=== PATIENT | male | born 1970 | race Caucasian/White ===

== ENCOUNTER 2023-12-14 18:56 | Emergency (ER) | payer BC, SELFPAY ==
[2023-12-14] VITALS (15 sets, daily range): BP systolic 75–145; BP diastolic 45–84; PULSE 76–96; RESP 16–17; TEMP 36.6; O2SAT 95–99
--- NOTE | 2023-12-14 19:32 | ED.NAVMDI ---
HPI - Nausea/Vomiting/Diarrhea General Chief complaint: Nausea/Vomiting/Diarrhea Stated complaint: diarrhea, sweating, feeling unwell Time Seen by Provider: 12/14/23 19:32 Source: patient Mode of arrival: Ambulatory History of Present Illness HPI Narrative: 53yo male with a few hours of frequent loose stools, no black or red color, nausea without emesis, cramping abdominal pain, generalized weakness, no fevers or chills. No recent antibiotics. No close to contacts to persons with similar symptoms. No travel or camping. No history of Crohns disease, no inflammatory bowel disease, no chronic/recurrent diarrhea problems. at home asymptomatic. Related Data Home Medications Medication Instructions Recorded Confirmed atorvastatin 20 mg tablet 20 mg PO DAILY 12/14/23 12/14/23 olmesartan 20 mg tablet 20 mg PO DAILY 12/14/23 12/14/23 Allergies Allergy/AdvReac Type Severity Reaction Status Date / Time No Known Drug Allergies Allergy Verified 12/14/23 19:13 Patient History Social History Smoking Status: Never smoker Smoking Status: Never smoker alcohol intake frequency: a few times a month Substance Use Type: does not use Exam Narrative Exam Narrative: GENERAL: Well-developed patient, in mild distress. HEAD: Atraumatic. Normocephalic. EYES: Pupils equal round and reactive. Extraocular motions intact. No scleral icterus. No injection or drainage. ENT: Nose without bleeding, purulent drainage. Throat without erythema, tonsillar hypertrophy or exudate. Airway patent. NECK: Trachea midline. Non tender CARDIOVASCULAR: Regular rate and rhythm without murmurs, gallops, or rubs. RESPIRATORY: Clear to auscultation. Breath sounds equal bilaterally. No wheezes, rales, or rhonchi. GASTROINTESTINAL: Abdomen soft, non-tender, nondistended. Increased bowel tones, no rushes or tinkles EXTREMITIES: No edema or joint tenderness. BACK: Nontender without deformity or crepitance. No flank tenderness. NEURO: AOx3. SKIN: No rash or erythema of visible areas Initial Vital Signs Initial Vital Signs: Vital Signs Temperature 98 F 12/14/23 19:09 Pulse Rate 86 12/14/23 19:09 Respiratory Rate 17 12/14/23 19:09 Blood Pressure 115/68 12/14/23 19:09 Pulse Oximetry 97 12/14/23 19:09 Oxygen Delivery Method Room Air 12/14/23 19:09 Course Orders Ordered: Discontinued Medications Al Hydrox/Mg Hydrox/Simethicone (Mag Hydrox/Alum/Simeth 30 Ml Udc) 30 ml PO NOW ONE Stop: 12/14/23 22:55 Last Admin: 12/14/23 23:01 Dose: 30 ml Documented By: VALERIE Sodium Chloride (Normal Saline 0.9%) 1,000 mls @ 1,000 mls/hr IV BOLUS ONE Stop: 12/14/23 21:39 Last Infusion: 12/14/23 22:20 Dose: Infused Documented By: Admin: 12/14/23 21:07 Dose: 1,000 mls/hr Documented By: VALERIE Sodium Chloride (Normal Saline 0.9%) 1,000 mls @ 1,000 mls/hr IV BOLUS ONE Stop: 12/14/23 23:47 Last Infusion: 12/14/23 23:42 Dose: Infused Documented By: Admin: 12/14/23 22:50 Dose: 1,000 mls/hr Documented By: VALERIE Lidocaine HCl (Lidocaine Viscous 2% 15 Ml Solution) 15 ml PO NOW ONE Stop: 12/14/23 22:55 Last Admin: 12/14/23 23:01 Dose: 15 ml Documented By: VALERIE Loperamide HCl (Loperamide 2 Mg Capsule) 2 mg PO NOW ONE Stop: 12/14/23 23:22 Last Admin: 12/14/23 23:28 Dose: 2 mg Documented By: VALERIE Ondansetron HCl (Ondansetron 4 Mg/2 Ml Inj) 4 mg IV NOW PRN PRN Reason: Nausea And Vomiting Ondansetron HCl (Ondansetron 4 Mg Odt) 4 mg PO NOW PRN PRN Reason: Nausea And Vomiting Last Admin: 12/14/23 19:49 Dose: 4 mg Documented By: BRANDIN Ondansetron HCl (Ondansetron 4 Mg Odt Prepack) 1 bottle MISC DIRECTED ONE Stop: 12/14/23 23:20 Last Admin: 12/14/23 23:26 Dose: 1 bottle Documented By: VALERIE Vital Signs Vital signs: Vital Signs - 8 hr 12/14/23 19:09 12/14/23 20:35 12/14/23 20:35 Temperature 98 F Pulse Rate 86 78 Respiratory Rate 17 Blood Pressure 115/68 75/45 L Pulse Oximetry 97 97 Oxygen Delivery Method Room Air 12/14/23 20:40 12/14/23 20:40 12/14/23 20:50 Temperature Pulse Rate 76 Respiratory Rate Blood Pressure 82/52 L Pulse Oximetry 99 96 Oxygen Delivery Method Room Air 12/14/23 21:01 12/14/23 21:10 12/14/23 21:11 Temperature Pulse Rate 89 Respiratory Rate Blood Pressure 120/67 127/75 Pulse Oximetry 98 Oxygen Delivery Method 12/14/23 21:11 12/14/23 21:20 12/14/23 21:20 Temperature Pulse Rate 87 87 Respiratory Rate Blood Pressure 126/70 Pulse Oximetry 99 98 Oxygen Delivery Method 12/14/23 21:30 12/14/23 21:30 12/14/23 22:00 Temperature Pulse Rate 88 93 H Respiratory Rate Blood Pressure 126/68 Pulse Oximetry 98 96 Oxygen Delivery Method Room Air 12/14/23 22:00 12/14/23 22:30 12/14/23 22:30 Temperature Pulse Rate 93 H Respiratory Rate Blood Pressure 116/72 126/82 Pulse Oximetry 95 Oxygen Delivery Method 12/14/23 23:00 12/14/23 23:01 12/14/23 23:01 Temperature Pulse Rate 95 H 93 H Respiratory Rate Blood Pressure 145/81 H Pulse Oximetry 95 96 Oxygen Delivery Method 12/14/23 23:30 12/14/23 23:30 12/14/23 23:43 Temperature Pulse Rate 96 H 95 H Respiratory Rate 16 Blood Pressure 134/84 134/84 Pulse Oximetry 97 96 Oxygen Delivery Method Room Air Room Air MDM - Nausea/Vomiting/Diarrhea Lab Data Attestation: I reviewed the patient's lab results. 12/14/23 19:59 12/14/23 19:54 Labs: Lab Results 12/14/23 12/14/23 12/14/23 Range/Units 19:54 19:59 21:06 WBC 19.3 H (4.5-11.0) X10^3/uL RBC 5.59 (4.5-5.9) X10^6/uL Hgb 16.1 (13.5-17.5) g/dL Hct 48.6 (41-53) % MCV 87.0 (80-100) fL MCH 28.8 (26-34) PG MCHC 33.1 (30-36) % RDW 13.7 (11.6-14.8) % Plt Count 234 (150-400) X10^3/uL Neut % (Auto) 90.7 H (50-75) % Lymph % (Auto) 3.7 L (25-40) % [place] % (Auto) 4.6 (3-14) % Eos % (Auto) 0.9 L (2-4) % Baso % (Auto) 0.1 (0-2) % Neut # (Auto) 31097 H (0186-6221) /uL Lymph # (Auto) 700 L (2527-7594) /uL [place] # (Auto) 900 (0-900) /uL Eos # (Auto) 200 (0-450) /uL Baso # (Auto) 0 (0-100) /uL Sodium 139 (137-145) mmol/L Potassium 4.3 (3.4-5.1) mmol/L Chloride 109 H (98-107) mmol/L Carbon Dioxide 18 L (22-32) mmol/L BUN 23 H (9-20) mg/dL Creatinine 1.09 (0.66-1.25) mg/dL Estimated GFR > 60 (>60) mL/min BUN/Creatinine Ratio 21.1 (6-22) Glucose 125 H (70-100) mg/dL Calcium 9.3 (8.4-10.2) mg/dL Total Bilirubin 0.8 (0.2-1.3) mg/dL AST 27 (17-59) IU/L ALT 31 (<50) IU/L Alkaline Phosphatase 88 (38-126) U/L Troponin I < 0.012 (0.01-0.034) ng/mL Total Protein 8.0 (6.3-8.2) g/dL Albumin 4.8 (3.5-5.0) g/dL Globulin 3.2 (1.7-4.1) g/dL Albumin/Globulin Ratio 1.5 (1.0-2.8) Lipase 394 H (23-300) U/L Urine Color Yellow Urine Appearance Clear Urine pH 6.0 (4.5-8.0) Ur Specific [place] 1.010 (1.000-1.035) Urine Protein Negative (Negative) Urine Glucose (UA) Negative (Negative) g/dL Urine Ketones Trace H (NEGATIVE) Urine Occult Blood Negative (Negative) Urine Nitrate Negative (Negative) Urine Bilirubin Negative (NEGATIVE) Urine Urobilinogen 0.2 (0.2) E.U./dL Ur Leukocyte Esterase Negative (NEGATIVE) Urine RBC None seen (0-5/HPF) Urine WBC 0-1/hpf (0-5/HPF) Ur Squamous Epith Cells 0-1 /hpf (0-5/HPF) Urine Bacteria None seen (None) Hyaline Casts 0-1/lpf (None) Ur Culture Indicated? Cult not indicated Vol Urine Centrifuged 10ml (spun) Stl C. cayetanensis PCR Not detected (Not Detect) Stool Rotavirus (PCR) Not detected (Not Detect) Stool Adenovirus (PCR) Not detected (Not Detect) Stool Astrovirus (PCR) Not detected (Not Detect) Stool Cryptosporidium PCR Not detected (Not Detect) Stl E.coli Shiga Tox PCR Not detected (Not Detect) St Sh/Enteroin Ecoli PCR Not detected (Not Detect) Stl Enterotoxigenic E PCR Not detected (Not Detect) Stool EPEC (PCR) Not detected (Not Detect) Stl E. histolytica PCR Not detected (Not Detect) Stool Giardia Lamblia PCR Not detected (Not Detect) Stool Sapovirus (PCR) Not detected (Not Detect) Stl P. shigelloides PCR Not detected (Not Detect) St Y.enterocolitica PCR Not detected (Not Detect) Stool Vibrio (PCR) Not detected (Not Detect) Stl Vibrio cholerae PCR Not detected (Not Detect) Stl Enteroaggr Ecoli PCR Not detected (Not Detect) Stl Norovirus GI/GII PCR Detected (Not Detect) Campylobacter (PCR) Not detected (Not Detect) C. difficile Tox (PCR) Not detected (Not Detect) Salmonella (PCR) Not detected (Not Detect) Imaging Data CT scan - abdomen/pelvis: Radiologist's Impression: [address] [address] [address] Scan Report Signed Patient: Neftaly Herrmann MR#: [id number] : 1970 Acct:[id number] Age/Sex: 53 / M Date of Service: 12/14/23 Loc: ED Accession Number: [id number] Procedure: CT abdomen pelvis w con Ordering Provider: Kevon Ortiz MD PROCEDURE: CT ABDOMEN PELVIS W CON INDICATIONS: N/V/D, low BP, eval infection TECHNIQUE: After the administration of intravenous contrast, axial sections acquired from the lung bases to the pubic symphysis. Coronal and sagittal reformats were performed. For radiation dose reduction, the following was used: automated exposure control, adjustment of mA and/or kV according to patient size. COMPARISON: [facility], CT, CT ABDOMEN PELVIS WITH CONTRAST, 03/13/2018, 11:27. FINDINGS: Image quality: Diagnostic. Lower Chest: No significant findings. ABDOMEN: Liver: No solid mass. Gallbladder: No radiopaque gallstones or wall thickening. Biliary ducts: No biliary dilation. Pancreas: No ductal dilation. Spleen: Size is within normal limits. Adrenal Glands: No adrenal nodules. Kidneys and Ureters: No hydronephrosis. No solid mass. No complex renal cystic lesion which requires follow up. Stomach and Bowel: Normal colonic caliber, without significant wall thickening. The visualized small bowel and colon are diffusely fluid-filled with mild gastric distension. The appendix is not definitively visualized. However, no secondary findings of acute inflammation are noted in the right lower quadrant. Peritoneum: No abnormal intraperitoneal fluid. No free air. Ventral Wall: There is a fat-containing umbilical hernia without acute inflammation. Abdominal Nodes: No retroperitoneal or mesenteric adenopathy by size criteria. Vessels: Aorta and inferior vena cava are normal in size. PELVIS: Pelvic Organs: Unremarkable. Bladder: No bladder wall thickening, accounting for underdistention. Pelvic Nodes: No enlarged lymph nodes. Miscellaneous: No inguinal hernias are seen. Bones: No aggressive osseous abnormality. Visualized osseous structures appear intact without acute fracture or focal destructive lesion. No acute compression fractures of the imaged spine. IMPRESSION: Diffusely scattered fluid-filled loops of colon and small bowel likely related to gastroenteritis either infectious or inflammatory in etiology. Otherwise, no acute abnormalities identified in the abdomen or pelvis. Other chronic findings as above. Dictated by: Matteo Thibodeaux M.D. on 12/14/2023 at 21:35 Approved by: Matteo Thibodeaux M.D. on 12/14/2023 at 21:40 ECG Data Interpretation: Normal sinus rhythm with a rate of 86, no obvious ST segment elevation or depression changes. TN 138, QRS 74, QTC 447. MDM Narrative Medical decision making narrative: 53-year-old male with abdominal cramping and diarrhea, some nausea, soft blood pressure on triage, IV fluid bolus given, screening blood test showed leukocytosis white blood cell count 87133, GFR favorable, CT abdomen and pelvis ordered. He did produce stool specimen for lab testing, positive for norovirus. CT abdomen and pelvis showed acute gastroenteritis changes, consistent with his neuro virus she IP results 2 L of fluid given, symptoms improving. Heart rate and blood pressure improved. Able to take oral fluids, ambulatory in ED. Able to take oral fluids. Improved, would like to go home. Discharged home with . Critical Care Time Critical Care Time Critical Care Time: Yes Total Critical Care Time: 31 Attestation: The high probability of a clinically significant, sudden or life threatening deterioration of the [gastrointestinal, abdominopelvic] system(s) required my full and direct attention, intervention and personal management. The aggregate critical care time was [31] minutes. This time is in addition to time spent performing reported procedures but includes the following: [x] Data Review and interpretation [x] Patient assessment and monitoring of vital signs [x] Documentation [x] Medication orders and management Discharge Plan Departure Patient Disposition: Home Clinical Impression: Gastroenteritis, Dehydration Activity Restrictions/Additional Instructions: Abdominal cramping with significant diarrhea who the day today, low/soft blood pressure on arrival, IV fluids given, elevated white blood cell count noted, CT abdomen and pelvis showed gastroenteritis changes but no complicated findings, no bowel obstruction, no perforation, no abscess. Stool specimen received by lab and was positive for norovirus, a viral gastroenteritis pathogen. Your symptoms and course and lab findings are consistent with norovirus gastroenteritis, which is usually self-limited. You were significantly dehydrated to the point where did seem to affect her blood pressure. 2 L of fluids were given, symptoms much improved. Oral dose of loperamide to help prevent further diarrhea. This is available [id number], you can take 1 tablet after each loose stool up to 4-6 and a 24 hour period, if needed to control diarrheal symptoms. Nausea controlled with oral dissolvable Zofran, home pack given for home use if you were to have nausea recurrent. Consider recheck with your regular doctor if not improved in the next couple of days. Return to this/nearest emergency department for any change worsening symptoms or any concerns prior Prescriptions: No Action atorvastatin 20 mg tablet 20 mg PO DAILY olmesartan 20 mg tablet 20 mg PO DAILY Stand Alone Forms: Patient Portal/API
--- NOTE | 2023-12-14 19:48 | EKG_ITS ---
[facility] [address], [place] [address] Test Date: 2023-12-14 Pat Name: Neftaly Herrmann Department: [facility] Room: Gender: Male [employer]anner: BRANDIN : 1970 Requested By: Order Number: [id number] Reading MD: Bc Trinh Measurements Intervals [place] Rate: 86 P: 47 AL: 138 QRS: 47 QRSD: 74 T: 66 QT: 374 QTc: 447 Interpretive Statements Normal sinus rhythm Electronically Signed On 12-17-2023 9:01:50 PDT by Bc Trinh
[2023-12-14] MEDS: ONDANSETRON 4 MG ODT PO (19:49)
[2023-12-14 20:09] LABS: Add Manual Diff / Slide Review NO; Basophils Absolute Auto 0 /uL (0-100); Basophils Percent Auto 0.1 % (0-2); Eosinophils Absolute Auto 200 /uL (0-450); Eosinophils Percent Auto 0.9 % (2-4); Hematocrit 48.6 % (41-53); Hemoglobin 16.1 g/dL (13.5-17.5); Lymphocytes Absolute Auto 700 /uL (1100-4500); Lymphocytes Percent Auto 3.7 % (25-40); Mean Corpuscular HGB Conc 33.1 % (30-36); Mean Corpuscular Hemoglobin 28.8 PG (26-34); Monocytes Absolute Auto 900 /uL (0-900); Monocytes Percent Auto 4.6 % (3-14); Neutrophils Absolute Auto 17500 /uL (1500-7000); Neutrophils Percent Auto 90.7 % (50-75); Platelet Count 234 X10^3/uL (150-400); Red Blood Cell Count 5.59 X10^6/uL (4.5-5.9); Red Cell Distribution Width 13.7 % (11.6-14.8); White Blood Cell Count 19.3 X10^3/uL (4.5-11.0)
[2023-12-14 20:21] LABS: Alanine Aminotransferase 31 IU/L (<50); Albumin 4.8 g/dL (3.5-5.0); Albumin Globulin Ratio 1.5 (1.0-2.8); Alkaline Phosphatase 88 U/L (38-126); Aspartate Aminotransferase 27 IU/L (17-59); BUN Creatinine Ratio 21.1 (6-22); Bilirubin Total 0.8 mg/dL (0.2-1.3); Blood Urea Nitrogen 23 mg/dL (9-20); Calcium 9.3 mg/dL (8.4-10.2); Carbon Dioxide 18 mmol/L (22-32); Chloride 109 mmol/L (98-107); Estimated Glomerular Filt Rate > 60 mL/min (>60); Globulin 3.2 g/dL (1.7-4.1); Glucose 125 mg/dL (70-100); HEMOLYSIS 22 (0-50); Lipase 394 U/L (23-300); Potassium 4.3 mmol/L (3.4-5.1); Sodium 139 mmol/L (137-145)
--- NOTE | 2023-12-14 20:42 | DI.CT.S_ITS ---
PROCEDURE: CT ABDOMEN PELVIS W CON INDICATIONS: N/V/D, low BP, eval infection TECHNIQUE: After the administration of intravenous contrast, axial sections acquired from the lung bases to the pubic symphysis. Coronal and sagittal reformats were performed. For radiation dose reduction, the following was used: automated exposure control, adjustment of mA and/or kV according to patient size. COMPARISON: [facility], CT, CT ABDOMEN PELVIS WITH CONTRAST, 03/13/2018, 11:27. FINDINGS: Image quality: Diagnostic. Lower Chest: No significant findings. ABDOMEN: Liver: No solid mass. Gallbladder: No radiopaque gallstones or wall thickening. Biliary ducts: No biliary dilation. Pancreas: No ductal dilation. Spleen: Size is within normal limits. Adrenal Glands: No adrenal nodules. Kidneys and Ureters: No hydronephrosis. No solid mass. No complex renal cystic lesion which requires follow up. Stomach and Bowel: Normal colonic caliber, without significant wall thickening. The visualized small bowel and colon are diffusely fluid-filled with mild gastric distension. The appendix is not definitively visualized. However, no secondary findings of acute inflammation are noted in the right lower quadrant. Peritoneum: No abnormal intraperitoneal fluid. No free air. Ventral Wall: There is a fat-containing umbilical hernia without acute inflammation. Abdominal Nodes: No retroperitoneal or mesenteric adenopathy by size criteria. Vessels: Aorta and inferior vena cava are normal in size. PELVIS: Pelvic Organs: Unremarkable. Bladder: No bladder wall thickening, accounting for underdistention. Pelvic Nodes: No enlarged lymph nodes. Miscellaneous: No inguinal hernias are seen. Bones: No aggressive osseous abnormality. Visualized osseous structures appear intact without acute fracture or focal destructive lesion. No acute compression fractures of the imaged spine. IMPRESSION: Diffusely scattered fluid-filled loops of colon and small bowel likely related to gastroenteritis either infectious or inflammatory in etiology. Otherwise, no acute abnormalities identified in the abdomen or pelvis. Other chronic findings as above. Dictated by: Matteo Thibodeaux M.D. on 12/14/2023 at 21:35 Approved by: Matteo Thibodeaux M.D. on 12/14/2023 at 21:40
[2023-12-14] MEDS: SODIUM CHLORIDE 0.9% 1,000 ML 1000 ML IV ×2 (21:07→22:50)
[2023-12-14 21:57] LABS: Troponin I < 0.012 ng/mL (0.01-0.034)
[2023-12-14 22:17] LABS: Appearance Urine UA CLEAR; Bilirubin Urine UA NEGATIVE (NEGATIVE); Color Urine UA YELLOW; Glucose Urine UA NEGATIVE (Negative); Ketones Urine UA TRACE (NEGATIVE); Leukocyte Esterase Urine UA NEGATIVE (NEGATIVE); Nitrite Urine UA NEGATIVE (Negative); Occult Blood Urine UA NEGATIVE (Negative); Protein Urine UA NEGATIVE (Negative); Urobilinogen Urine UA 0.2 E.U./dL (0.2)
[2023-12-14 22:22] LABS: Bacteria Urine None Seen; RBC Urine None Seen (0-5/HPF); Squamous Epithelial Cell Urine 0-1 /HPF (0-5/HPF); Urine Volume 10mL (spun)
[2023-12-14 22:23] LABS: Hyaline Casts Urine 0-1/LPF; WBC Urine 0-1/HPF (0-5/HPF)
[2023-12-14 22:24] LABS: Culture Indicated Urine Cult Not Indicated
[2023-12-14 22:31] LABS: Adenovirus F 40/41 Not Detected (Not Detect); Astrovirus Not Detected (Not Detect); Campylobacter Not Detected (Not Detect); Clostridium difficile toxin AB Not Detected (Not Detect); Cryptosporidium Not Detected (Not Detect); Cyclospora cayetanensis Not Detected (Not Detect); Entamoeba histolytica Not Detected (Not Detect); Enteroaggregative E.coli Not Detected (Not Detect); Enteropathogenic E.coli Not Detected (Not Detect); Enterotoxigenic E.coli It/st Not Detected (Not Detect); Giardia lamblia Not Detected (Not Detect); Norovirus GI/GII Detected (Not Detect); Plesiomonsa shigelloides Not Detected (Not Detect); Rotavirus A Not Detected (Not Detect); Salmonella Not Detected (Not Detect); Sapovirus Not Detected (Not Detect); Shiga-like toxin-prod E.coli Not Detected (Not Detect); Shigella/Enteroinvasive E.coli Not Detected (Not Detect); Vibrio Not Detected (Not Detect); Vibrio cholerae Not Detected (Not Detect); Yersinia enterocolitica Not Detected (Not Detect)
[2023-12-14] MEDS: LIDOCAINE VISCOUS 2% 15 ML SOLUTION PO (23:01)
[2023-12-14] MEDS: MAG HYDROX/ALUM/SIMETH 30 ML UDC PO (23:01)
[2023-12-14] MEDS: ONDANSETRON 4 MG ODT PREPACK 1 BOTTLE MISC (23:26)
[2023-12-14] MEDS: LOPERAMIDE 2 MG CAPSULE PO (23:28)
== END 2023-12-14 23:41 | disposition home or self-care (01) ==
PROVIDERS: Emergency Provider Emergency Medicine
DX: A08.11 Acute gastroenteropathy due to Norwalk agent (principal); K52.9 Noninfective gastroenteritis and colitis, unspecified; E86.0 Dehydration
CPT/HCPCS: 36415; 74177; 80053; 81001; 83690; 84484; 85025; 87507; 93005; 96360; 96361; 99284; Q9967